=== PATIENT | female | born 2000 | race Caucasian/White ===

== ENCOUNTER 2025-08-23 09:20 | Observation (INO) | payer OTHER ==
[2025-08-22 17:50] VITALS: BP 136/82; TEMP 98.2; O2SAT 64
[~2025-08-23] VITALS: Ht 170.2 cm; Wt 122.2 kg
[2025-08-23] MEDS: KETOROLAC 30 MG/ML 1 ML VIAL IV ONE (10:58)
[2025-08-23] MEDS: FAMOTIDINE 20 MG/2 ML VIAL IVP ONE (10:58)
[2025-08-23] MEDS: NS (Normal Saline) 0.9% 1,000 ML IV ONE (10:58)
[2025-08-23] MEDS: ONDANSETRON 4MG/2ML VIAL IV ONE (10:58)
[2025-08-23 11:05] LABS: BASO # 0.0 10^3/uL (0.0-0.2); BASO % 0.2 % (0.0-1.0); EOS # 0.0 10^3/uL (0.0-0.5); EOS % 0.0 % (0.0-3.0); LYMPH # 1.0 10^3/uL (1.5-5.0); LYMPH % 7.8 % (24.0-44.0); MONO # 0.3 10^3/uL (0.0-0.8); MONO % 2.3 % (2.0-8.0); NEUTROPHILS # 11.6 10^3/uL (1.5-8.5); NEUTROPHILS % 89.4 % (36.0-66.0); PLATELET COUNT, AUTOMATED 292 10^3/uL (150-450)
[2025-08-23 11:27] LABS: HCG, SERUM QUALITATIVE NEGATIVE (NEGATIVE)
[2025-08-23 11:28] LABS: ALT/SGPT 29 U/L (7.0-40); AST/SGOT 17 U/L (<34); CALCIUM LEVEL 9.4 MG/DL (8.5-10.1); CARBON DIOXIDE LEVEL 28 MMOL/L (20-31); CHLORIDE LEVEL 104 MMOL/L (98-107); CREATININE FOR GFR 0.65 MG/DL (0.55-1.30); GLOMERULAR FILTRATION RATE > 90.0 (>60); POTASSIUM SERUM 4.0 MMOL/L (3.5-5.1); SODIUM LEVEL 143 MMOL/L (136-145)
[2025-08-23] MEDS ORDERED: ISOVUE-370 76% 100 ML VIAL As Ordered ONE (11:44)
[2025-08-23 12:21] LABS: KETONE, URINE AUTO RFX NEGATIVE (NEGATIVE); LEUKOCYTE ESTERASE UR AUTO RFX NEGATIVE (NEGATIVE); MUCUS, URINE RFX SMALL (NEGATIVE); NITRITE, URINE AUTO RFX NEGATIVE (NEGATIVE); RBC, URINE AUTO RFX 0 /HPF (0-3); SQUAM EPITHELIAL CELL UR AURFX 11 /HPF (0-6); WBC, URINE AUTO RFX 0 /HPF (0-3)
[2025-08-23] MEDS: NS (Normal Saline) 0.9% 1,000 ML IV SCH (12:55)
[2025-08-23] MEDS ORDERED: APPLTAB2 PO (13:11)
[2025-08-23] MEDS ORDERED: THERTAB52 PO (13:11)
[2025-08-23] MEDS ORDERED: CVS500CA5 PO (13:11)
[2025-08-23] MEDS ORDERED: B-12100021 PO (13:11)
[2025-08-23] MEDS ORDERED: MAGN400T2 PO (13:11)
[2025-08-23] MEDS ORDERED: HOME MED LIST COMPLETE! XX SCH (13:15)
[2025-08-23 13:58] LABS: C REACTIVE PROTEIN QUANTITATIV < 0.50 MG/DL (<1.0)
[2025-08-23 17:50] VITALS: BP 136/82; TEMP 98.2; O2SAT 64
[2025-08-23] MEDS: ONDANSETRON 4MG/2ML VIAL IV PRN (19:20)
[2025-08-23] MEDS: KETOROLAC 30 MG/ML 1 ML VIAL IV PRN (19:21)
[2025-08-23 20:00] VITALS: BP 127/65; TEMP 98.4; O2SAT 99
[2025-08-23 20:01] VITALS: BP 127/65; TEMP 98.4; O2SAT 99
[2025-08-23] MEDS: MAGNESIUM OXIDE 400 MG TAB PO SCH (20:38)
[2025-08-24] VITALS: BP 110/61; TEMP 98; O2SAT 99
[2025-08-24 04:00] VITALS: BP 108/54; TEMP 98.3; O2SAT 97
[2025-08-24] MEDS: CIPROFLOXACIN 500 MG TABLET PO SCH (06:00)
[2025-08-24 07:52] LABS: PLATELET COUNT, AUTOMATED 221 10^3/uL (150-450)
[2025-08-24 08:12] LABS: ALT/SGPT 21 U/L (7.0-40); AST/SGOT 11 U/L (<34); CALCIUM LEVEL 8.3 MG/DL (8.5-10.1); CARBON DIOXIDE LEVEL 29 MMOL/L (20-31); CHLORIDE LEVEL 107 MMOL/L (98-107); CREATININE FOR GFR 0.84 MG/DL (0.55-1.30); GLOMERULAR FILTRATION RATE > 90.0 (>60); MAGNESIUM LEVEL 1.8 MG/DL (1.8-2.4); POTASSIUM SERUM 4.2 MMOL/L (3.5-5.1); SODIUM LEVEL 143 MMOL/L (136-145)
[2025-08-24] MEDS ORDERED: METR-265 PO (09:41)
[2025-08-24] MEDS ORDERED: CIPR500T39 PO (09:41)
[2025-08-24] MEDS ORDERED: PROB250C PO (09:41)
== END 2025-08-24 11:45 | disposition home or self-care (01) ==
LOC: M ED 09:20 → M ED INP 09:21 → M MS4PR 17:40
PROVIDERS: ADMIT Internal Medicine; ATTEND Internal Medicine
DX: K52.9 Noninfective gastroenteritis and colitis, unspecified (principal); E83.42 Hypomagnesemia; D72.829 Elevated white blood cell count, unspecified; Z79.4 Long term (current) use of insulin; Z79.899 Other long term (current) drug therapy
CPT/HCPCS: 36415; 71046; 74177; 80047; 80048; 80053; 80076; 81001; 83605; 83690; 83735; 84145; 84703; 85025; 85027; 86140; 87507; 93005; 96361; 96374; 96375; 96376; 99284; J1308; J1885; J2405; Q9967